=== PATIENT | female | born 1930 | race Caucasian/White ===

== ENCOUNTER 2016-10-06 13:08 | Inpatient (IN) | payer MEDICARE, OTHER ==
[~2016-10-06] VITALS: Ht 160 cm; Wt 79.4 kg
[~2016-10-06 13:08] MED LIST: ACETAMINOPHEN325 MG PO; ASPIR 8181 MG PO; AZELASTINE HCL6 ML OU; DULERA 100 MCG8.8 GM INH; DURAGESIC 25 MCG1 EA TD; DURAGESIC 50 MCG1 EA TD; ESCITALOPRAM OXA5 MG PO; ISOSORBIDE MONO60 MG PO; LANTUS100 UNIT/1 SQ; LEVAQUIN750 MG PO; LIPITOR TAB 2020 MG PO; LYRICA100 MG PO; NEURONTIN 300300 MG PO; NORCO 10-325 T1 EACH PO; NORVASC 5 MG TAB5 MG PO; PREVACID30 MG PO; PROAIR HFA8.5 GM INH; RANEXA500 MG PO; RESTORIL15 MG PO; SPIRIVA18 MCG INH; TOPROL XL 100100 MG PO; VENTOLIN/PROVE0.5 ML INH; VITAMIN D22000 UNIT PO
[2016-10-06 13:47] LABS: HEMOGLOBIN 10.6 gm/dl (12.3-15.3); RED BLOOD COUNT 3.67 M/UL (4.00-5.10); WHITE BLOOD COUNT 14.6 K/UL (4.5-11.0)
[2016-10-06] MEDS ORDERED: DIABETA 5 MG TAB5 MG PO (21:36)
[2016-10-06] MEDS ORDERED: ZESTRIL5 MG PO (21:37)
[2016-10-07 12:27] LABS: HEMOGLOBIN 10.8 gm/dl (12.3-15.3); RED BLOOD COUNT 3.77 M/UL (4.00-5.10); WHITE BLOOD COUNT 13.7 K/UL (4.5-11.0)
[2016-10-08 06:16] LABS: RED BLOOD COUNT 3.84 M/UL (4.00-5.10)
[2016-10-09 05:53] LABS: HEMOGLOBIN 9.3 gm/dl (12.3-15.3)
[2016-10-09 05:54] LABS: RED BLOOD COUNT 3.2 M/UL (4.00-5.10); WHITE BLOOD COUNT 8.1 K/UL (4.5-11.0)
[2016-10-09] MEDS ORDERED: NITROSTAT 0.40.4 MG SL (11:02)
[2016-10-09] MEDS ORDERED: AUGMENTIN TAB875 MG PO (11:44)
[2016-10-09] MEDS ORDERED: VITAMIN D 11000 UNIT PO (12:36)
== END 2016-10-09 13:18 | disposition home health service (06) | DRG 191 ==
LOC: ER1 13:08 → ZEROF 15:21 → M/S 21:14
PROVIDERS: Emergency Medicine; ADMIT Family Medicine
DX: J44.0 Chronic obstructive pulmonary disease with (acute) lower respiratory infection (principal); N39.0 Urinary tract infection, site not specified; J20.9 Acute bronchitis, unspecified; J44.1 Chronic obstructive pulmonary disease with (acute) exacerbation; L89.222 Pressure ulcer of left hip, stage 2; I10 Essential (primary) hypertension; E11.9 Type 2 diabetes mellitus without complications; I73.9 Peripheral vascular disease, unspecified; E78.5 Hyperlipidemia, unspecified; F41.8 Other specified anxiety disorders; G89.29 Other chronic pain; M54.5 Low back pain; M51.36 Other intervertebral disc degeneration, lumbar region; G47.33 Obstructive sleep apnea (adult) (pediatric); I25.10 Atherosclerotic heart disease of native coronary artery without angina pectoris; K21.9 Gastro-esophageal reflux disease without esophagitis; G62.9 Polyneuropathy, unspecified; I49.5 Sick sinus syndrome; Z88.8 Allergy status to other drugs, medicaments and biological substances; Z87.891 Personal history of nicotine dependence
CPT/HCPCS: 36415; 51701; 71010; 71020; 80048; 80053; 81001; 82550; 82553; 82962; 83605; 83690; 83874; 84484; 85025; 85027; 87040; 87077; 87086; 87186; 94640; 94664; 96361; 96374; 96375; 99285; J0456; J0696; J1650; J2405; J7030; J7050

== ENCOUNTER 2016-10-29 12:48 | Emergency (ER) | payer MEDICARE ==
[~2016-10-29 12:48] MED LIST changes: +AUGMENTIN TAB875 MG PO; +DIABETA 5 MG TAB5 MG PO; +NITROSTAT 0.40.4 MG SL; +VITAMIN D 11000 UNIT PO; +ZESTRIL5 MG PO
== END 2016-10-29 19:10 | disposition home or self-care (01) ==
LOC: ER1 12:48
DX: T78.40XA Allergy, unspecified, initial encounter (principal); J44.9 Chronic obstructive pulmonary disease, unspecified; E11.9 Type 2 diabetes mellitus without complications; I10 Essential (primary) hypertension; E78.5 Hyperlipidemia, unspecified; I51.9 Heart disease, unspecified; Z79.4 Long term (current) use of insulin; Z79.82 Long term (current) use of aspirin; Z79.899 Other long term (current) drug therapy
CPT/HCPCS: 36415; 82962; 93005; 99284

== ENCOUNTER 2016-11-18 15:54 | Inpatient (IN) | payer MEDICARE ==
[~2016-11-18] VITALS: Ht 165.1 cm; Wt 93.4 kg
[2016-11-18 16:32] LABS: RED BLOOD COUNT 3.8 M/UL (4.00-5.10); WHITE BLOOD COUNT 4.6 K/UL (4.5-11.0)
[2016-11-18 21:34] LABS: HEMOGLOBIN 10.6 gm/dl (12.3-15.3); RED BLOOD COUNT 3.61 M/UL (4.00-5.10); WHITE BLOOD COUNT 3.2 K/UL (4.5-11.0)
[2016-11-19 05:09] LABS: HEMOGLOBIN 9.9 gm/dl (12.3-15.3); RED BLOOD COUNT 3.51 M/UL (4.00-5.10)
[2016-11-19 05:11] LABS: WHITE BLOOD COUNT 5.6 K/UL (4.5-11.0)
[2016-11-19 09:59] LABS: ACINETOBACTER BAUMANNII Not Detected (Negative); CANDIDA ALBICANS Not Detected (Negative); CANDIDA KRUSEI Not Detected (Negative); CANDIDA TROPICALIS Not Detected (Negative); ENTEROCOCCUS Not Detected (Negative); HAEMOPHILUS INFLUENZAE Not Detected (Negative); KLEBSIELLA OXYTOCA Not Detected (Negative); KLEBSIELLA PNEUMONIAE Not Detected (Negative); KPC-CARBAPENEM-RESISTANCE GENE Not Detected (Negative); PROTEUS Not Detected (Negative); PSEUDOMONAS AERUGINOSA Not Detected (Negative); SERRATIA MARCESANS Not Detected (Negative); STAPHYLOCOCCUS Not Detected (Negative); STAPHYLOCOCCUS AUREUS Not Detected (Negative); STREP AGALACTIAE (GROUP B) Not Detected (Negative); STREP PYOGENES (GROUP A) Not Detected (Negative); STREPTOCOCCUS Not Detected (Negative); mecA (METHICILLIN RESIST GENE Not Detected (Negative); vanA/B (VANCOMYCIN RESIST GENE Not Detected (Negative)
[2016-11-19 12:01] LABS: ESCHERICHIA COLI DETECTED (Negative)
[2016-11-20 04:54] LABS: HEMOGLOBIN 8.7 gm/dl (12.3-15.3); WHITE BLOOD COUNT 6.9 K/UL (4.5-11.0)
[2016-11-20 04:57] LABS: RED BLOOD COUNT 3.07 M/UL (4.00-5.10)
[2016-11-21 05:11] LABS: HEMOGLOBIN 9.2 gm/dl (12.3-15.3); RED BLOOD COUNT 3.15 M/UL (4.00-5.10); WHITE BLOOD COUNT 7.2 K/UL (4.5-11.0)
[2016-11-22 03:27] LABS: HEMOGLOBIN 8.7 gm/dl (12.3-15.3); RED BLOOD COUNT 3.08 M/UL (4.00-5.10); WHITE BLOOD COUNT 10.3 K/UL (4.5-11.0)
[2016-11-23 04:11] LABS: HEMOGLOBIN 9.2 gm/dl (12.3-15.3); RED BLOOD COUNT 3.23 M/UL (4.00-5.10); WHITE BLOOD COUNT 10.4 K/UL (4.5-11.0)
[2016-11-23 22:03] LABS: ACINETOBACTER BAUMANNII Not Detected (Negative); CANDIDA ALBICANS Not Detected (Negative); CANDIDA KRUSEI Not Detected (Negative); CANDIDA TROPICALIS Not Detected (Negative); ENTEROCOCCUS Not Detected (Negative); ESCHERICHIA COLI Not Detected (Negative); HAEMOPHILUS INFLUENZAE Not Detected (Negative); KLEBSIELLA OXYTOCA Not Detected (Negative); KLEBSIELLA PNEUMONIAE Not Detected (Negative); PROTEUS Not Detected (Negative); PSEUDOMONAS AERUGINOSA Not Detected (Negative); SERRATIA MARCESANS Not Detected (Negative); STAPHYLOCOCCUS Not Detected (Negative); STAPHYLOCOCCUS AUREUS Not Detected (Negative); STREP AGALACTIAE (GROUP B) Not Detected (Negative); STREP PYOGENES (GROUP A) Not Detected (Negative); STREPTOCOCCUS Not Detected (Negative); mecA (METHICILLIN RESIST GENE Not Detected (Negative); vanA/B (VANCOMYCIN RESIST GENE Not Detected (Negative)
[2016-11-23 23:23] LABS: KPC-CARBAPENEM-RESISTANCE GENE Not Detected (Negative)
[2016-11-24 03:51] LABS: HEMOGLOBIN 9.7 gm/dl (12.3-15.3); RED BLOOD COUNT 3.41 M/UL (4.00-5.10)
[2016-11-24 04:27] LABS: WHITE BLOOD COUNT 17.3 K/UL (4.5-11.0)
[2016-11-25 04:49] LABS: HEMOGLOBIN 9.3 gm/dl (12.3-15.3); RED BLOOD COUNT 3.27 M/UL (4.00-5.10); WHITE BLOOD COUNT 15.2 K/UL (4.5-11.0)
[2016-11-26 03:38] LABS: HEMOGLOBIN 9.4 gm/dl (12.3-15.3); RED BLOOD COUNT 3.27 M/UL (4.00-5.10); WHITE BLOOD COUNT 17.2 K/UL (4.5-11.0)
[2016-11-27 03:23] LABS: RED BLOOD COUNT 3.13 M/UL (4.00-5.10); WHITE BLOOD COUNT 17.6 K/UL (4.5-11.0)
[2016-11-27 03:43] LABS: BUN/CREATININE RATIO 73 (0-10)
[2016-11-28 03:32] LABS: HEMOGLOBIN 8.5 gm/dl (12.3-15.3); RED BLOOD COUNT 3.02 M/UL (4.00-5.10); WHITE BLOOD COUNT 15.9 K/UL (4.5-11.0)
[2016-11-28 03:50] LABS: BUN/CREATININE RATIO 60 (0-10)
[2016-11-29 03:41] LABS: HEMOGLOBIN 8.8 gm/dl (12.3-15.3); RED BLOOD COUNT 3.07 M/UL (4.00-5.10); WHITE BLOOD COUNT 14.2 K/UL (4.5-11.0)
[2016-11-29 04:00] LABS: BUN/CREATININE RATIO 56 (0-10)
[2016-11-30 03:53] LABS: HEMOGLOBIN 8.7 gm/dl (12.3-15.3); RED BLOOD COUNT 3.04 M/UL (4.00-5.10); WHITE BLOOD COUNT 12.2 K/UL (4.5-11.0)
[2016-11-30 04:14] LABS: BUN/CREATININE RATIO 50 (0-10)
[2016-11-30] MEDS ORDERED: LOPRESSOR 25 MG25 MG PO (09:53)
[2016-12-01 04:20] LABS: HEMOGLOBIN 8.5 gm/dl (12.3-15.3); RED BLOOD COUNT 2.93 M/UL (4.00-5.10)
[2016-12-01 04:27] LABS: WHITE BLOOD COUNT 7.8 K/UL (4.5-11.0)
[2016-12-01 04:48] LABS: BUN/CREATININE RATIO 37 (0-10)
[2016-12-02 05:37] LABS: HEMOGLOBIN 8.2 gm/dl (12.3-15.3); RED BLOOD COUNT 2.83 M/UL (4.00-5.10); WHITE BLOOD COUNT 7.1 K/UL (4.5-11.0)
[2016-12-02 05:57] LABS: BUN/CREATININE RATIO 26 (0-10)
== END 2016-12-02 16:10 | DRG 870 ==
LOC: ER1 15:54 → MED SURG 4 18:43 → CCU 18:43 → ZEROF 18:43 → CCU 20:38 → MED SURG 4 11-30 16:14
PROVIDERS: Emergency Medicine; Family Medicine; Internal Medicine Cardiovascular Disease; Internal Medicine Critical Care Medicine; Internal Medicine Infectious Disease; Internal Medicine Nephrology; ADMIT Family Medicine
PROC: 5A1955Z Respiratory Ventilation, Greater than 96 Consecutive Hours (ICD-10-PCS; principal; 2016-11-18)
PROC: 0BH17EZ Insertion of Endotracheal Airway into Trachea, Via Natural or Artificial Opening (ICD-10-PCS; 2016-11-18)
PROC: 02HV33Z Insertion of Infusion Device into Superior Vena Cava, Percutaneous Approach (ICD-10-PCS; 2016-11-19)
PROC: B548ZZA Ultrasonography of Superior Vena Cava, Guidance (ICD-10-PCS; 2016-11-19)
DX: A41.51 Sepsis due to Escherichia coli [E. coli] (principal); J96.21 Acute and chronic respiratory failure with hypoxia; J15.5 Pneumonia due to Escherichia coli; J69.0 Pneumonitis due to inhalation of food and vomit; G93.41 Metabolic encephalopathy; R65.21 Severe sepsis with septic shock; J96.22 Acute and chronic respiratory failure with hypercapnia; N17.9 Acute kidney failure, unspecified; N39.0 Urinary tract infection, site not specified; M62.82 Rhabdomyolysis; I13.0 Hypertensive heart and chronic kidney disease with heart failure and stage 1 through stage 4 chronic kidney disease, or unspecified chronic kidney disease; I50.32 Chronic diastolic (congestive) heart failure; E87.2 Acidosis; J44.0 Chronic obstructive pulmonary disease with (acute) lower respiratory infection; E66.2 Morbid (severe) obesity with alveolar hypoventilation; E87.0 Hyperosmolality and hypernatremia; J98.11 Atelectasis; I48.0 Paroxysmal atrial fibrillation; L89.222 Pressure ulcer of left hip, stage 2; E11.22 Type 2 diabetes mellitus with diabetic chronic kidney disease; N18.3 Chronic kidney disease, stage 3 (moderate); E11.65 Type 2 diabetes mellitus with hyperglycemia; D63.1 Anemia in chronic kidney disease; I25.10 Atherosclerotic heart disease of native coronary artery without angina pectoris; J45.30 Mild persistent asthma, uncomplicated; I49.5 Sick sinus syndrome; I27.2 Other secondary pulmonary hypertension; I44.7 Left bundle-branch block, unspecified; M50.30 Other cervical disc degeneration, unspecified cervical region; M51.36 Other intervertebral disc degeneration, lumbar region; M19.90 Unspecified osteoarthritis, unspecified site; G89.29 Other chronic pain; G47.00 Insomnia, unspecified; K21.9 Gastro-esophageal reflux disease without esophagitis; G62.9 Polyneuropathy, unspecified; R19.7 Diarrhea, unspecified; R13.10 Dysphagia, unspecified; F32.9 Major depressive disorder, single episode, unspecified; F41.9 Anxiety disorder, unspecified; Z98.61 Coronary angioplasty status; Z95.0 Presence of cardiac pacemaker; Z87.891 Personal history of nicotine dependence; Z91.19 Patient's noncompliance with other medical treatment and regimen; Z87.442 Personal history of urinary calculi; Z68.30 Body mass index [BMI] 30.0-30.9, adult; Z99.81 Dependence on supplemental oxygen; Z79.4 Long term (current) use of insulin; Z79.84 Long term (current) use of oral hypoglycemic drugs; Z79.51 Long term (current) use of inhaled steroids; Z79.891 Long term (current) use of opiate analgesic; Z79.82 Long term (current) use of aspirin; Z79.1 Long term (current) use of non-steroidal anti-inflammatories (NSAID); Z79.899 Other long term (current) drug therapy; Z88.3 Allergy status to other anti-infective agents; Z88.8 Allergy status to other drugs, medicaments and biological substances; Z90.710 Acquired absence of both cervix and uterus; Z90.722 Acquired absence of ovaries, bilateral; Z90.79 Acquired absence of other genital organ(s); Z90.49 Acquired absence of other specified parts of digestive tract; Z98.49 Cataract extraction status, unspecified eye; Z98.890 Other specified postprocedural states
CPT/HCPCS: ECHO; 31500; 36415; 36600; 51702; 70450; 71010; 71250; 80048; 80053; 80076; 80162; 80307; 81001; 82248; 82330; 82550; 82553; 82803; 82962; 83605; 83735; 83874; 83880; 84100; 84132; 84146; 84484; 85025; 85027; 87040; 87070; 87077; 87086; 87150; 87186; 87205; 87278; 87899; 92526; 92610; 93005; 93306; 94002; 94003; 94640; 94660; 94668; 95819; 96374; 96375; 97110; 97530; 99291; C1751; J0295; J0330; J0360; J1120; J1160; J1650; J1815; J1940; J1956; J2185; J2250; J2543; J3010; J3370; J3480; J7030; J7040; J7050; J7070

== ENCOUNTER 2016-12-02 23:25 | Observation (INO) | payer MEDICARE, OTHER ==
[~2016-12-02] VITALS: Ht 162.6 cm; Wt 80.9 kg
[~2016-12-02 23:25] MED LIST changes: +LOPRESSOR 25 MG25 MG PO
[2016-12-03 01:51] LABS: HEMOGLOBIN 8.7 gm/dl (12.3-15.3); RED BLOOD COUNT 2.96 M/UL (4.00-5.10); WHITE BLOOD COUNT 7.8 K/UL (4.5-11.0)
[2016-12-03 08:12] LABS: HEMOGLOBIN 8.7 gm/dl (12.3-15.3)
[2016-12-03 12:00] LABS: HEMOGLOBIN 8.8 gm/dl (12.3-15.3); RED BLOOD COUNT 3.01 M/UL (4.00-5.10); WHITE BLOOD COUNT 5.6 K/UL (4.5-11.0)
== END 2016-12-03 15:20 ==
LOC: CCU 23:25
PROVIDERS: Internal Medicine; ADMIT Family Medicine
DX: K92.1 Melena (principal); K64.4 Residual hemorrhoidal skin tags; R19.7 Diarrhea, unspecified; I25.10 Atherosclerotic heart disease of native coronary artery without angina pectoris; I12.9 Hypertensive chronic kidney disease with stage 1 through stage 4 chronic kidney disease, or unspecified chronic kidney disease; E11.22 Type 2 diabetes mellitus with diabetic chronic kidney disease; N18.3 Chronic kidney disease, stage 3 (moderate); J44.9 Chronic obstructive pulmonary disease, unspecified; J96.11 Chronic respiratory failure with hypoxia; G47.00 Insomnia, unspecified; M19.90 Unspecified osteoarthritis, unspecified site; G47.33 Obstructive sleep apnea (adult) (pediatric); M51.36 Other intervertebral disc degeneration, lumbar region; E78.5 Hyperlipidemia, unspecified; J18.9 Pneumonia, unspecified organism; G93.40 Encephalopathy, unspecified; K21.9 Gastro-esophageal reflux disease without esophagitis; Z95.0 Presence of cardiac pacemaker; Z90.710 Acquired absence of both cervix and uterus; Z90.722 Acquired absence of ovaries, bilateral; Z98.49 Cataract extraction status, unspecified eye; Z90.49 Acquired absence of other specified parts of digestive tract; Z88.8 Allergy status to other drugs, medicaments and biological substances; Z79.899 Other long term (current) drug therapy; Z79.82 Long term (current) use of aspirin; Z79.891 Long term (current) use of opiate analgesic
CPT/HCPCS: 36415; 80048; 82550; 82553; 82962; 83605; 84484; 85014; 85018; 85025; 85027; 86850; 86900; 86901; 86920; C9113; G0378; G0379

== ENCOUNTER 2017-01-08 12:23 | Inpatient (IN) | payer MEDICARE ==
[~2017-01-08] VITALS: Ht 162.6 cm; Wt 76.7 kg
[2017-01-08] MEDS ORDERED: TYLENOL 325MG325 MG PO (15:07)
[2017-01-08] MEDS ORDERED: PROAIR HFA8.5 GM INH (15:08)
[2017-01-08] MEDS ORDERED: PROMETHAZINE12.5 M1 PO (15:09)
[2017-01-08] MEDS ORDERED: CIMETIDINE400 MG PO (15:10)
[2017-01-08] MEDS ORDERED: DIGOX125 MCG PO (15:10)
[2017-01-08] MEDS ORDERED: CARDIZEM 60MG T60 MG PO (15:11)
[2017-01-08] MEDS ORDERED: NYSTOP60 GM TP (15:13)
[2017-01-08 17:49] LABS: HEMOGLOBIN 11.4 gm/dl (12.3-15.3); RED BLOOD COUNT 3.93 M/UL (4.00-5.10); WHITE BLOOD COUNT 7.2 K/UL (4.5-11.0)
[2017-01-09 04:07] LABS: WHITE BLOOD COUNT 6.9 K/UL (4.5-11.0)
[2017-01-09 04:12] LABS: HEMOGLOBIN 9.1 gm/dl (12.3-15.3); RED BLOOD COUNT 3.21 M/UL (4.00-5.10)
== END 2017-01-09 15:20 | disposition home or self-care (01) | DRG 189 ==
LOC: PROG CARE 14:44
PROVIDERS: ADMIT Family Medicine
PROC: 05HM33Z Insertion of Infusion Device into Right Internal Jugular Vein, Percutaneous Approach (ICD-10-PCS; principal; 2017-01-08)
DX: J96.11 Chronic respiratory failure with hypoxia (principal); J18.9 Pneumonia, unspecified organism; J44.0 Chronic obstructive pulmonary disease with (acute) lower respiratory infection; J96.12 Chronic respiratory failure with hypercapnia; I48.91 Unspecified atrial fibrillation; R41.82 Altered mental status, unspecified; I25.10 Atherosclerotic heart disease of native coronary artery without angina pectoris; M19.90 Unspecified osteoarthritis, unspecified site; I12.9 Hypertensive chronic kidney disease with stage 1 through stage 4 chronic kidney disease, or unspecified chronic kidney disease; N18.3 Chronic kidney disease, stage 3 (moderate); G89.29 Other chronic pain; Y95 Nosocomial condition; E78.5 Hyperlipidemia, unspecified; E11.22 Type 2 diabetes mellitus with diabetic chronic kidney disease; F41.9 Anxiety disorder, unspecified; F32.9 Major depressive disorder, single episode, unspecified; Z99.81 Dependence on supplemental oxygen; G47.30 Sleep apnea, unspecified; F51.04 Psychophysiologic insomnia; E86.0 Dehydration; K21.9 Gastro-esophageal reflux disease without esophagitis; Z91.09 Other allergy status, other than to drugs and biological substances; Z79.82 Long term (current) use of aspirin; Z79.899 Other long term (current) drug therapy; Z79.4 Long term (current) use of insulin; Z95.0 Presence of cardiac pacemaker
CPT/HCPCS: 36415; 36600; 71010; 80048; 80053; 81001; 82550; 82553; 82803; 82962; 84484; 85025; 85027; 87086; 93005; C1751; J1650; J1817; J1956; J7030

== ENCOUNTER → 2017-04-19 | Outpatient (CLI) | payer MEDICARE ==
[~2017-04-19] MED LIST changes: +CARDIZEM 60MG T60 MG PO; +CIMETIDINE400 MG PO; +DIGOX125 MCG PO; +NYSTOP60 GM TP; +PROMETHAZINE12.5 M1 PO; +TYLENOL 325MG325 MG PO
== END ==
LOC: KOH-I 12:24
DX: J69.0 Pneumonitis due to inhalation of food and vomit (principal)
CPT/HCPCS: 71020